=== PATIENT | female | born 1965 | race Two or more races ===

== ENCOUNTER 2017-03-06 11:48 | Emergency (ER) | payer MEDICAID ==
[~2017-03-06] VITALS: Ht 157.5 cm; Wt 63.5 kg
[~2017-03-06 11:48] MED LIST: LEVOTHYROXINE100 MCG ORAL; LEVOTHYROXINE75 MCG ORAL
[2017-03-06] MEDS ORDERED: Metoclopramide 10mg/10ml Liq ORAL ONE (12:30)
--- NOTE | 2017-03-06 12:32 | Emergency Room Report ---
History of Present Illness General Chief Complaint: Headache Present Illness HPI 52-year-old female presents to the emergency department complaining of 7/10 in severity right-sided pulsatile headache without visual changes x2 days. Patient reports nausea denies vomiting. Patient denies neck pain or stiffness. Patient denies fevers or chills. Patient denies history of migraines denies frequency, urgency, hematuria. Patient denies acute onset she reports her pain was progressive in nature. Patient reports no relief after taking Advil. Denies thigh pain, diplopia, loss of vision. Denies trauma or fall. Denies night sweats, significant changes in weight or history of neoplastic disease. Denies hyperacusis or changes in hearing . Denies CP, Palpitations, LOC, AMS, dizziness, Changes in Vision, Sensation, paresthesias, or a sudden severe headache. Allergies: Coded Allergies: NO KNOWN DRUG ALLERGIES (Unverified Allergy, Unknown, 05/14/14) Patient History Past Medical History: see triage record Past Surgical History: none Pertinent Family History: none Now: No Immunizations: UTD Reviewed Nursing Documentation: PMH: Agreed, PSxH: Agreed Nursing Documentation-PMH Hx Cardiac Problems: No Hx Hypertension: Yes Hx Cancer: No Hx Gastrointestinal Problems: No Hx Neurological Problems: Yes Hx Syncope: Yes Review of Systems All Other Systems: negative except mentioned in HPI Physical Exam Vital Signs Date Time Temp Pulse Resp B/P (MAP) Pulse Ox O2 Delivery O2 Flow Rate FiO2 03/06/17 11:56 98.4 78 20 132/64 100 Room Air Sp02 EP Interpretation: reviewed, normal General Appearance: no apparent distress, alert, GCS 15, non-toxic Head: normocephalic, atraumatic Eyes: bilateral eye normal inspection, bilateral eye PERRL ENT: hearing grossly normal, normal voice Neck: full range of motion, no meningismus, no bony tend, supple/symm/no masses Respiratory: lungs clear, normal breath sounds, speaking full sentences Cardiovascular #1: regular rate, rhythm, normal capillary refill Gastrointestinal: non tender, soft, no guarding, no rebound Rectal: deferred Genitourinary: normal inspection, no CVA tenderness Musculoskeletal: back normal, gait/station normal, normal range of motion, non- tender Neurologic: alert, oriented x3, responsive, motor strength/tone normal, sensory intact, normal gait, speech normal, no pronator, other - equal edge bonder strength, negative mejia's Psychiatric: judgement/insight normal, memory normal, mood/affect normal Skin: normal color, no rash, warm/dry, well hydrated, jaundice Lymphatic: no adenopathy Medical Decision Making PA Attestation Dr. tanner is my supervising Physician whom patient management has been discussed with. Diagnostic Impression: Primary Impression: Headache Qualified Codes: R51 - Headache ER Course 52-year-old female presents to the emergency department complaining of 7/10 in severity right-sided pulsatile headache without visual changes x2 days. Patient reports nausea denies vomiting. Patient denies neck pain or stiffness. Patient denies fevers or chills. Patient denies history of migraines denies frequency, urgency, hematuria. Patient denies acute onset she reports her pain was progressive in nature. Patient reports no relief after taking Advil. Denies thigh pain, diplopia, loss of vision. Denies trauma or fall. Denies night sweats, significant changes in weight or history of neoplastic disease. Denies hyperacusis or changes in hearing . Denies CP, Palpitations, LOC, AMS, dizziness, Changes in Vision, Sensation, paresthesias, or a sudden severe headache. Ddx considered but are not limited to migraine, SAH, Psedudo motor Cerebri, Mass lesion, Cluster OAKLEY, Tension OAKLEY, Post lumbar puncture OAKLEY, CVA, meningitis, UTI just to name a few. Vital signs: are WNL, pt. is afebrile H&PE are most consistent with headache- progressive onset without neurological deficit. ORDERS: -UA: Unremarkable / no infection ED INTERVENTIONS: - Reglan PO -Pt. reports her OAKLEY has subsided after above interventions. d/w pt. conservative treatment, and to follow up with a primary care provider/ Neurology evaluation as needed. pt given a list of primary care clinics for follow up. d/w pt. to return to the ED with worsening or new symptoms. DISCHARGE: At this time pt. is stable for d/c to home. Will provide printed patient care instructions, and any necessary prescriptions. Care plan and follow up instructions have been discussed with the patient prior to discharge. Labs Test 03/06/17 12:30 Urine Color Pale yellow Urine Appearance Clear Urine pH 7 (4.5-8.0) Urine Specific [place] 1.010 (1.005-1.035) Urine Protein Negative (NEGATIVE) Urine Glucose (UA) Negative (NEGATIVE) Urine Ketones Negative (NEGATIVE) Urine Occult Blood 2+ (NEGATIVE) Urine Nitrite Negative (NEGATIVE) Urine Bilirubin Negative (NEGATIVE) Urine Urobilinogen Normal MG/DL (0.0-1.0) Urine Leukocyte Esterase 1+ (NEGATIVE) Urine RBC 2-4 /HPF (0 - 2) Urine WBC 2-4 /HPF (0 - 2) Urine Squamous Epithelial Cells Few /LPF (NONE/OCC) Urine Bacteria Few /HPF (NONE) Last Vital Signs Date Time Temp Pulse Resp B/P (MAP) Pulse Ox O2 Delivery O2 Flow Rate FiO2 03/06/17 11:56 98.4 78 20 132/64 100 Room Air Disposition: HOME, SELF-CARE Condition: Stable Scripts Metoclopramide Hcl* (REGLAN*) 10 Mg Tablet 10 MG ORAL THREE TIMES A DAY Y for For Headache, #9 TAB Prov: Pastora Mcrae 03/06/17 Acetaminophen* (TYLENOL EXTRA STRENGTH*) 500 Mg Tablet 500 MG ORAL Q6H Y for For Headache, #20 TAB 0 Refills Prov: Pastora Mcrae 03/06/17 Patient Instructions: General Headache Without Cause Additional Instructions: Take medications as directed. Follow up with a NEUROLOGIST in 3 days, even if your symptoms have resolved. --Please review list of primary care clinics, if you do not already have a primary care provider Return sooner to ED if new symptoms occur, or current symptoms become worse. - Please note that this Emergency Department Report was dictated using [employer] service representative technology software, occasionally this can lead to erroneous entry secondary to interpretation by the dictation equipment. Pastora Mcrae Mar 06, 2017 12:32
[2017-03-06 13:05] LABS: APPEARANCE,URINE CLEAR; KETONES,URINE NEGATIVE (NEGATIVE); LEUKOCYTE ESTERASE ,URINE 1+ (NEGATIVE); NITRITE,URINE NEGATIVE (NEGATIVE); PH,URINE 7 (4.5-8.0); PROTEIN,URINE NEGATIVE (NEGATIVE); UROBILINOGEN,URINE NORMAL MG/DL (0.0-1.0)
[2017-03-06 13:12] LABS: BACTERIA,URINE FEW /HPF; SQUAMOUS EPITHELIAL CELL,UR FEW /LPF (NONE/OCC)
[2017-03-06] MEDS ORDERED: TYLENOL EXTRA500 MG ORAL (13:40)
[2017-03-06] MEDS ORDERED: REGLAN10 MG ORAL (13:40)
[2017-03-06 14:00] VITALS: BP 126/70
== END 2017-03-06 14:05 | disposition home or self-care (01) ==
LOC: EMR 13:24
DX: R51 Headache (principal); I10 Essential (primary) hypertension
CPT/HCPCS: 81003; 99283